=== PATIENT | female | born 1975 | race Asian ===

== ENCOUNTER → 2021-12-14 | Outpatient (CLI) | payer OTHER ==
[~2021-12-14] MED LIST: HYDROCO; NAPR-1197 PO; [UNRECOGNIZED DRUG - OTHER]
[2021-12-15 04:06] LABS: RUBELLA AB IGG-REFLAB 5.46 index (Immune >0.99); RUBEOLA (MEASLES) IGG >300.0 AU/mL (Immune >16.4)
== END | disposition home or self-care (01) ==
LOC: LABMN 14:30
PROVIDERS: ATTEND Internal Medicine
DX: Z02.1 Encounter for pre-employment examination (principal)
CPT/HCPCS: 86706; 86735; 86762; 86765; 86787

== ENCOUNTER 2022-02-16 10:53 | Emergency (ER) | payer OTHER ==
[~2022-02-16] VITALS: Ht 157.5 cm; Wt 50.0 kg
[2022-02-16 12:19] LABS: COVID AG,FIA SOURCE NASOPHARYNGEAL
[2022-02-16 12:54] LABS: INFLUENZA TYPE A NEGATIVE FOR TYPE A (NEGATIVE); INFLUENZA TYPE B NEGATIVE FOR TYPE B (NEGATIVE)
[2022-02-16] MEDS ORDERED: NIRM1TAB PO (14:17)
[2022-02-16 14:34] VITALS: BP 127/68
== END 2022-02-16 14:40 | disposition home or self-care (01) ==
LOC: EMS 11:10
DX: U07.1 COVID-19 (principal); E11.9 Type 2 diabetes mellitus without complications; I10 Essential (primary) hypertension; Z98.890 Other specified postprocedural states
CPT/HCPCS: 71046; 87804; 99284

== ENCOUNTER → 2023-11-12 | Emergency (ER) | payer OTHER ==
[~2023-11-12] VITALS: Ht 157.5 cm; Wt 56.8 kg
[~2023-11-12] MED LIST changes: +IBUP-1492 PO; +LISI5TAB21 PO; +METO-408 PO; +NIRM1TAB4 PO
[2023-11-12 08:42] VITALS: TEMP 98.4
[2023-11-12 08:53] LABS: COVID AG,FIA SOURCE NASAL SWAB
[2023-11-12 08:57] VITALS: BP 126/81; PULSE 72; RESP 16; O2SAT 97
[2023-11-12 09:18] LABS: SARS-COV2 (COVID) ANTIGEN,FIA Negative (Negative)
== END | disposition still patient (30) ==
LOC: EMS 08:36
DX: Z00.00 Encounter for general adult medical examination without abnormal findings (principal); E11.9 Type 2 diabetes mellitus without complications; I10 Essential (primary) hypertension; Z20.822 Contact with and (suspected) exposure to COVID-19
CPT/HCPCS: 99283

== ENCOUNTER 2024-06-10 17:59 | Inpatient (IN) | payer OTHER ==
[~2024-06-10] VITALS: Ht 157.5 cm; Wt 61.9 kg
[2024-06-10 19:09] LABS: BASOPHILS % (AUTO) 0.5 % (0.0-2.0); EOSINOPHILS % (AUTO) 1.5 % (1.0-6.0); HEMATOCRIT 39.6 % (36-46); LYMPHOCYTES # (AUTO) 2.5 K/uL (1.0-4.8); LYMPHOCYTES % (AUTO) 36.7 % (22.0-44.0); MEAN CORPUSCULAR HGB CONC 32.8 G/dL (31.0-37.0); MEAN CORPUSCULAR VOLUME 94 fL (80-100); MONOCYTES # (AUTO) 0.4 K/uL (0.1-1.0); MONOCYTES % (AUTO) 6.2 % (2.0-9.0); NEUTROPHILS # (AUTO) 3.7 K/uL (1.8-7.7); NEUTROPHILS % (AUTO) 55.1 % (40.0-70.0); PLATELET COUNT (AUTO) 268 K/uL (150-450); RED BLOOD CELL COUNT(AUTO) 4.19 MIL/uL (4.00-5.20); RED CELL DISTRIBUTION WIDTH 13.6 % (11.5-14.5); WHITE BLOOD COUNT (AUTO) 6.7 K/uL (4.5-11.0)
[2024-06-10 19:19] LABS: PROTHROMBIN TIME 10.4 SEC (9.4-11.6)
[2024-06-10 19:23] LABS: CALCIUM, TOTAL 9.4 mg/dL (8.8-10.5); CARBON DIOXIDE 30 mmol/L (22-29); CREATINE KINASE, TOTAL ONLY 65 U/L (26-192); CREATININE 0.77 mg/dL (0.60-1.30); GLOMERULAR FILTR. RATE CALC > 60 mL/min (>60); GLUCOSE,RANDOM 99 mg/dL (70-110); TROPONIN I-HIGH SENSITIVITY 4 ng/L (<51); UREA NITROGEN, BLOOD 19 mg/dL (7-18)
[2024-06-10 19:30] LABS: BILIRUBIN,DIRECT 0.1 mg/dL (0.00-0.20); BILIRUBIN,TOTAL 0.5 mg/dL (0.1-1.0); TOTAL PROTEIN, SERUM 7.9 g/dL (6.4-8.2)
[2024-06-10 19:32] LABS: ANION GAP 6 mmol/L (8-16); B-TYPE NATRIURETIC PEPTIDE < 5 pg/mL (0-100); CHLORIDE 104 mmol/L (98-107); POTASSIUM 3.9 mmol/L (3.5-5.1); SODIUM SERUM 140 mmol/L (136-145)
[2024-06-10] MEDS ORDERED: ONDANSETRON HCL 4 MG/2 ML VIAL IVP PRN (20:30)
[2024-06-10] MEDS: ASPIRIN 81 MG CHEWABLE TABLET PO ONE (20:50)
[2024-06-10] MEDS: ATORVASTATIN CALCIUM 40 MG TABLET PO SCH (22:38)
[2024-06-11] VITALS (7 sets, daily range): BP systolic 111–155; BP diastolic 69–97; PULSE 61–73; RESP 17–18; TEMP 97.6–98.4; O2SAT 96–100
[2024-06-11] MEDS: HEPARIN SODIUM,PORCINE 5,000 UNITS/ML VIAL SQ SCH
[2024-06-11 02:17] LABS: APPEARANCE,URINE CLEAR (CLEAR); BILIRUBIN,URINE NEGATIVE (NEGATIVE); COLOR,URINE YELLOW (YELLOW); GLUCOSE, URINE (UA) NEGATIVE (NEGATIVE); KETONES,URINE NEGATIVE (NEGATIVE); LEUKOCYTE ESTERASE ,URINE MODERATE (NEGATIVE); NITRATE,URINE NEGATIVE (NEGATIVE); OCCULT BLOOD,URINE NEGATIVE (NEGATIVE); PH,URINE 5.5 (5.0-8.0); PROTEIN,URINE TRACE mg/dL (NEGATIVE); SPECIFIC GRAVITIY, URINE 1.031 (1.003-1.030); UROBILINOGEN,URINE <=1.0 mg/dL (<=1.0)
[2024-06-11 02:33] LABS: BACTERIA,URINE None Seen /HPF (None Seen); HYALINE CASTS, URINE 0-2 /LPF (None Seen); RBC,URINE None Seen /HPF (0-2); SQUAMOUS EPITHELIAL CELL,UR Few /LPF (None Seen)
[2024-06-11 07:19] LABS: BASOPHILS % (AUTO) 0.5 % (0.0-2.0); EOSINOPHILS % (AUTO) 1.6 % (1.0-6.0); HEMATOCRIT 39.3 % (36-46); LYMPHOCYTES # (AUTO) 2.4 K/uL (1.0-4.8); LYMPHOCYTES % (AUTO) 40.8 % (22.0-44.0); MEAN CORPUSCULAR HEMOGLOBIN 31.1 pg (26.0-34.0); MEAN CORPUSCULAR VOLUME 94 fL (80-100); MONOCYTES # (AUTO) 0.4 K/uL (0.1-1.0); NEUTROPHILS # (AUTO) 2.9 K/uL (1.8-7.7); NEUTROPHILS % (AUTO) 50.1 % (40.0-70.0); PLATELET COUNT (AUTO) 255 K/uL (150-450); RED BLOOD CELL COUNT(AUTO) 4.17 MIL/uL (4.00-5.20); RED CELL DISTRIBUTION WIDTH 13.1 % (11.5-14.5); WHITE BLOOD COUNT (AUTO) 5.8 K/uL (4.5-11.0)
[2024-06-11 07:46] LABS: ANION GAP 8 mmol/L (8-16); CALCIUM, TOTAL 9.3 mg/dL (8.8-10.5); CARBON DIOXIDE 27 mmol/L (22-29); CHLORIDE 104 mmol/L (98-107); CHOLESTEROL 152 mg/dL (131-200); CREATININE 0.55 mg/dL (0.60-1.30); GLOMERULAR FILTR. RATE CALC > 60 mL/min (>60); GLUCOSE,RANDOM 85 mg/dL (70-110); HDL CHOLESTEROL 75 mg/dL (40-60); LDL CHOL (CALC.) 65 mg/dL (0-130); POTASSIUM 3.8 mmol/L (3.5-5.1); SODIUM SERUM 139 mmol/L (136-145); TRIGLYCERIDES 58 mg/dL (15-150); UREA NITROGEN, BLOOD 16 mg/dL (7-18)
[2024-06-11] MEDS: CLOPIDOGREL BISULFATE 75 MG TABLET PO SCH (08:46)
[2024-06-11] MEDS: ASPIRIN 81 MG CHEWABLE TABLET PO SCH (08:48)
[2024-06-11] MEDS: ACETAMINOPHEN 325 MG TABLET PO PRN (12:30)
[2024-06-12] VITALS: BP 123/73; PULSE 60; RESP 16; TEMP 97.7; O2SAT 100
[2024-06-12 04:00] VITALS: BP 125/76; PULSE 64; RESP 16; TEMP 97.9; O2SAT 99
[2024-06-12 07:11] VITALS: BP 125/81; PULSE 94; RESP 17; TEMP 97.7; O2SAT 98
[2024-06-12 10:49] VITALS: BP 120/90; PULSE 77; RESP 17; TEMP 98; O2SAT 97
== END 2024-06-12 15:25 | disposition home or self-care (01) | DRG 58 ==
LOC: EMS 17:59 → EDH 20:27 → 5S 06-11 01:36
PROVIDERS: ADMIT Internal Medicine; ATTEND Internal Medicine
DX: R20.0 Anesthesia of skin (principal); E11.9 Type 2 diabetes mellitus without complications; I10 Essential (primary) hypertension; F41.9 Anxiety disorder, unspecified; Z79.899 Other long term (current) drug therapy; Z86.16 Personal history of COVID-19; R53.1 Weakness
CPT/HCPCS: 70450; 70551; 71045; 80048; 80061; 80076; 81001; 82550; 83735; 83880; 84484; 84703; 85025; 85610; 85730; 92610; 93005; 93306; 97116; 97161; 97165; 99285; G0378; J1644; 36415-L1; 36415-TC